=== PATIENT | female | born 1965 | race Caucasian/White ===

== ENCOUNTER 2019-07-13 08:29 | Day surgery (SDC) | payer MEDICAID ==
[~2019-07-13] VITALS: Ht 147.3 cm; Wt 68.2 kg
[2019-07-13 08:58] LABS: BASOPHILS 0.3 % (0-2); EOSINOPHILS 2.5 % (0-7); HEMOGLOBIN 15.6 g/dL (12-16); IMMATURE GRANULOCYTES 0.1 % (0-5); LYMPHOCYTES 39.6 % (15-50); MCH 30.8 pg (26.0-34.0); MCHC 33.2 g/dL (31.0-37.0); MCV 92.9 fL (80.0-100.0); MEAN PLATELET VOLUME 9.7 fL (7.4-10.4); MONOCYTES 6.6 % (2-11); NEUTROPHILS 50.9 % (40-80); PLATELET COUNT 251 10x3/uL (130-400); RBC 5.06 10x6/uL (4.00-5.40); RDW 12.6 % (11.5-14.5); WBC 7.2 10x3/uL (4.8-10.8)
[2019-07-13 09:06] LABS: CALC OSMOLALITY 272 mosm/kg (275-300); CALCIUM 9.1 mg/dL (8.5-10.1); CARBON DIOXIDE 29.4 mmol/L (21.0-32.0); CHLORIDE - SERUM 101 mmol/L (98-107); CREATININE - SERUM 0.8 mg/dL (0.6-1.3); GLUCOSE 104 mg/dL (74-106); POTASSIUM - SERUM 4.3 mmol/L (3.5-5.1); SODIUM 135 mmol/L (136-145); UREA NITROGEN 20 mg/dL (7-18); eGFR NON AFRICAN AMERICAN 80 mL/min (90-120)
[2019-07-13 09:21] LABS: APTT 27.8 SECONDS (22.8-39.4); INR 0.92 (0.85-1.17); PROTIME 12.3 SECONDS (11.6-15.0)
[2019-07-13] MEDS ORDERED: LISINOPRIL20 MG PO (09:38)
[2019-07-13] MEDS ORDERED: LIPITOR20 MG PO (09:38)
[2019-07-13] MEDS ORDERED: VITAMIN E1000 UNI1 PO (09:39)
[2019-07-13] MEDS ORDERED: VITAMIN D3 PO (09:40)
[2019-07-13] MEDS ORDERED: BAYER CHEWABLE81 MG PO (09:40)
[2019-07-13] MEDS ORDERED: LOPRESSOR25 MG PO (09:41)
[2019-07-13] MEDS ORDERED: NITROQUICK0.4 MG SL (09:41)
[2019-07-13] MEDS ORDERED: VENTOLIN HFA [SP8 GM INH (09:42)
[2019-07-13] MEDS ORDERED: SPIRIVA RESPIMAT4 G1 INH (09:42)
[2019-07-13 09:55] VITALS: BP 103/62; Ht 147.3 cm; Wt 68.2 kg
--- NOTE | 2019-07-13 11:43 | NUR ---
1145 IV REMOVED AND INSTRUCTIONS GIVEN
--- NOTE | 2019-07-14 11:39 | OP ---
PATIENT NAME: PHU CASTANEDA MEDICAL RECORD: [id number] :67 LOCATION:[facility] ADMISSION DATE: SURGEON: DIPESH NINO DO DATE OF OPERATION: 07/13/2019 PROCEDURE: EGD with biopsies and balloon dilation. INDICATIONS FOR PROCEDURE: Dysphagia, nausea and vomiting, generalized abdominal pain, change in bowel habits. SCOPE: Olympus video gastroscope. MEDICATIONS: Propofol 160 mg IV per anesthesia. ESTIMATED BLOOD LOSS: Minimal. COMPLICATIONS: None. FINDINGS: Informed consent was given. The patient was made comfortable with the above medication. After reaching an adequate level of sedation by slow IV push, the patient was placed on her left side. The endoscope was advanced under direct visualization through the mouth to the second portion of the duodenum with ease. The upper and middle esophagus appeared normal. In the distal esophagus, there was some suggestion of esophageal stenosis. A 18-20 mm dilating CRE balloon was placed through the working channel of the endoscope and the site was dilated to 20 mm successfully. At the GE junction, there was evidence of LA class C, reflux-induced esophagitis. Biopsies were taken from both the mid esophagus with cold forceps and at the GE junction or squamocolumnar junction for submission to histopathology. The endoscope was advanced beyond the GE junction into the stomach and retroflexed to view the cardia and fundus, which appeared normal. Throughout the entire stomach, there was some erythema and granularity consistent with mild gastritis. Cold forceps biopsies were taken from the antrum and incisura to submit for histopathology and to rule out the presence of H. pylori. The endoscope was advanced beyond the pylorus into the duodenum where there was some further granularity and erythema of the duodenum consistent with duodenitis. The endoscope was withdrawn from the patient. The patient tolerated the procedure well and there were no complications. IMPRESSIONS: 1. Esophageal stenosis involving the distal esophagus. 2. LA class C, reflux-induced esophagitis. 3. Mild gastritis. 4. Duodenitis. PLAN AND RECOMMENDATIONS: 1. Discharge home when recovery parameters are met. 2. Follow up biopsy specimen results. 3. GERD diet and reflux precautions. 4. Continue current medications. 5. A prescription has been provided for omeprazole 40 mg daily to be taken 60 days. At that time, we can reevaluate if the medication needs continued or discontinued or if we need to switch to an H2 jakob such as Pepcid. 6. Follow up in GI clinic in 1 months' time. If symptoms continue with addition of a PPI, consider biliary dyskinesia as a cause of the pain and OPERATIVE REPORT [id number] PHU CASTANEDA consider referral to surgery for further evaluation. TRANSINT:[id number] Voice Confirmation ID: [id number] DOCUMENT ID: [id number] DIPESH NINO DO at 1139 CC: [id number] DICTATION DATE: 07/13/19 1125 SPORTS ANALYST: 07/13/19 1304 [facility] 07/13/19 [facility] [address] [place] [address]
== END 2019-07-13 12:00 | disposition home or self-care (01) ==
LOC: D.OPS 08:29
PROVIDERS: Anesthesiology; ATTEND Internal Medicine Gastroenterology
DX: R13.10 Dysphagia, unspecified (principal); R11.2 Nausea with vomiting, unspecified; R10.84 Generalized abdominal pain; R19.4 Change in bowel habit; K21.0 Gastro-esophageal reflux disease with esophagitis; K29.70 Gastritis, unspecified, without bleeding; K29.80 Duodenitis without bleeding

== ENCOUNTER → 2019-08-18 08:47 | Outpatient (CLI) | payer MEDICAID ==
[2019-07-13 09:55] VITALS: BMI 31.4
[~2019-08-18 08:47] MED LIST: BAYER CHEWABLE81 MG PO; LIPITOR20 MG PO; LISINOPRIL20 MG PO; LOPRESSOR25 MG PO; NITROQUICK0.4 MG SL; SPIRIVA RESPIMAT4 G1 INH; VENTOLIN HFA [SP8 GM INH; VITAMIN D3 PO; VITAMIN E1000 UNI1 PO
[2019-08-18 09:17] LABS: ALBUMIN 3.7 g/dL (3.4-5.0); BILIRUBIN - DIRECT 0.08 mg/dL (0.00-0.30); BILIRUBIN - INDIRECT 0.28 mg/dL (0.00-1.00); BILIRUBIN - TOTAL 0.36 mg/dL (0.2-1.3); PROTEIN - SERUM 7.4 g/dL (6.4-8.2)
== END | disposition home or self-care (01) ==
LOC: D.LAB 08:47 → D.US 09:30
PROVIDERS: ATTEND Internal Medicine Gastroenterology
DX: K76.0 Fatty (change of) liver, not elsewhere classified (principal)